=== PATIENT | female | born 1930 | race African-American/Black ===

== ENCOUNTER 2017-05-18 23:22 | Inpatient (IN) | payer MEDICARE, OTHER ==
[~2017-05-18] VITALS: Ht 165.1 cm; Wt 84.4 kg
[2017-05-19 01:33] LABS: Basophils # (auto) 0.1 uL; Basophils % (auto) 0.7 % (0.0-2.0); Eosinophils # (auto) 0.3 uL; Eosinophils % (auto) 4.2 % (0.0-7.0); Hematocrit 33.7 % (36.0-46.0); Hemoglobin 11.1 g/dL (12.2-16.2); Lymphocytes # (auto) 2.6 uL; Lymphocytes % (auto) 33.3 % (10.0-50.0); Mean Corpuscular Volume 97.1 fL (80.0-100.0); Mean Platelet Volume 8.2 fL (6.9-10.8); Monocytes # (auto) 0.5 uL; Neutrophils # (auto) 4.2 uL; Neutrophils % (auto) 54.8 % (37.0-80.0); Nucleated Red Blood Cells % 0.1 %; Platelet Count (auto) 144 10^3/uL (140-450); Red Cell Distribution Width 16.1 % (11.8-14.3); White Blood Cell 7.7 10^3/uL (4.4-10.8)
[2017-05-19 01:45] LABS: Calcium 8.1 mg/dL (8.5-10.1); Potassium 4.6 mmol/L (3.5-5.1)
[2017-05-19 01:47] LABS: BUN/Creatinine Ratio 16.8
[2017-05-19 01:49] LABS: Bilirubin, Total 0.1 mg/dL (0.2-1.0); Total Protein 6.5 g/dL (6.4-8.2)
[2017-05-19 01:56] LABS: Temperature: 21.9 C (20.0-25.0)
[2017-05-19] MEDS ORDERED: SODIUM CHLORIDE 0.9% 1,000 ML IV ONE (08:21)
[2017-05-19 09:34] LABS: Magnesium 1.8 mg/dL (1.6-2.6); Uric Acid 5.9 mg/dL (2.6-6.0)
[2017-05-19] MEDS ORDERED: NALBUPHINE HCL 10 MG/1ml INJECTION IV ONE (10:00)
[2017-05-19 12:39] LABS: Urine Bilirubin Negative (Negative); Urine Blood Negative /uL (Negative); Urine Color Yellow (Yellow); Urine Glucose Normal (Normal); Urine Ketone Negative (Negative); Urine Nitrite Negative (Negative); Urine RBC <1 /hpf (0 - 4); Urine Squamous Epithelial Cell FEW /hpf (<5); Urine Urobilinogen Normal (Negative); Urine pH 5.5 (5.0-8.0)
[2017-05-19] MEDS ORDERED: LISINOPRIL 5 MG TAB PO ONE (12:45)
[2017-05-19] MEDS ORDERED: HYDROmorphone HCL 2 MG/ML VL IV PRN (12:45)
[2017-05-19] MEDS ORDERED: SPIRONOLACTONE 25 MG TAB PO ONE (12:45)
[2017-05-19] MEDS ORDERED: MORPHINE SULFATE 10 MG/ML INJ 1ML SDV IV PRN (12:45)
[2017-05-19] MEDS ORDERED: NITROGLYCERIN 0.4 MG SL TAB SL PRN (12:45)
[2017-05-19] MEDS ORDERED: ALLOPURINOL 100 MG TAB PO ONE (12:45)
[2017-05-19] MEDS ORDERED: FUROSEMIDE 20 MG/2 ML VIAL IV ONE (12:45)
[2017-05-19] MEDS ORDERED: traMADol HCL 50 MG TAB PO PRN (12:45)
[2017-05-19] MEDS ORDERED: ONDANSETRON HCL 4 MG/2 ML VIAL IV PRN (12:45)
[2017-05-19] MEDS ORDERED: DOCUSATE SOD 100 MG CAP PO PRN (12:45)
[2017-05-19] MEDS ORDERED: cloNIDine HCL 0.1 MG TAB PO PRN (12:45)
[2017-05-19] MEDS ORDERED: cefTRIAXone 1GM/50ML D5W 50 ML IV ONE ×2 (12:45→13:45)
[2017-05-19] MEDS: MULTIPLE VITAMIN TAB PO SCH (13:53)
[2017-05-19] MEDS: ENOXAPARIN SOD 30 MG/0.3 ML SYRINGE SC SCH (13:53)
[2017-05-19] MEDS ORDERED: ENALAPRILAT 1.25 MG/ML-1ML VIAL IV PRN (15:45)
[2017-05-19] MEDS ORDERED: hydrALAZINE HCL 20 MG/ML VL IV PRN (15:45)
[2017-05-19] MEDS: SODIUM CHLOR 0.9% PF (SALINE LOCK) 10ML VIAL IV SCH ×2 (16:18→22:27)
[2017-05-19] MEDS: HYDROcodone-ACET 5/325MG TAB PO PRN (16:20)
[2017-05-19] MEDS: CLINDAMYCIN 300MG IV 50 ML IV SCH ×2 (16:29→22:26)
[2017-05-19 17:17] VITALS: BP 183/76
[2017-05-19 17:26] VITALS: BP 183/78
[2017-05-19] MEDS: FUROSEMIDE 20 MG/2 ML VIAL IV SCH (17:42)
[2017-05-19] MEDS: BOOST PLUS 8 ounce PO SCH ×2 (17:43→22:27)
[2017-05-19] MEDS: SPIRONOLACTONE 25 MG TAB PO SCH (17:43)
[2017-05-19 22:04] VITALS: BP 123/68
[2017-05-19] MEDS: ACETAMINOPHEN 325 MG TAB PO PRN (23:00)
[2017-05-20] MEDS: TEMAZEPAM 15 MG CAP PO PRN ×2 (01:47→21:20)
[2017-05-20 05:00] VITALS: BP 155/78
[2017-05-20] MEDS: FUROSEMIDE 20 MG/2 ML VIAL IV SCH ×2 (05:59→18:01)
[2017-05-20] MEDS: CLINDAMYCIN 300MG IV 50 ML IV SCH ×3 (05:59→21:18)
[2017-05-20] MEDS: SPIRONOLACTONE 25 MG TAB PO SCH ×2 (06:00→18:01)
[2017-05-20] MEDS: BOOST PLUS 8 ounce PO SCH ×4 (06:00→22:00)
[2017-05-20] MEDS: SODIUM CHLOR 0.9% PF (SALINE LOCK) 10ML VIAL IV SCH ×3 (06:00→21:18)
[2017-05-20 07:13] LABS: Basophils # (auto) 0 uL; Basophils % (auto) 0.3 % (0.0-2.0); Eosinophils # (auto) 0.2 uL; Eosinophils % (auto) 4.2 % (0.0-7.0); Hematocrit 33.7 % (36.0-46.0); Hemoglobin 11.4 g/dL (12.2-16.2); Lymphocytes # (auto) 1.8 uL; Lymphocytes % (auto) 35.9 % (10.0-50.0); Mean Corpuscular Hemoglobin 32.5 pg (28.0-32.0); Mean Corpuscular Hgb Conc. 33.9 g/dL (32.0-36.0); Mean Corpuscular Volume 95.7 fL (80.0-100.0); Mean Platelet Volume 8.1 fL (6.9-10.8); Monocytes # (auto) 0.4 uL; Monocytes % (auto) 8.4 % (0.0-12.0); Neutrophils # (auto) 2.6 uL; Neutrophils % (auto) 51.2 % (37.0-80.0); Nucleated Red Blood Cells % 0.2 %; Platelet Count (auto) 146 10^3/uL (140-450); Red Cell Distribution Width 15.7 % (11.8-14.3)
[2017-05-20 07:30] LABS: Albumin 2.8 g/dL (3.4-5.0); BUN/Creatinine Ratio 15.8; Bilirubin, Total 0.3 mg/dL (0.2-1.0); Calcium 8.3 mg/dL (8.5-10.1); Potassium 4.1 mmol/L (3.5-5.1); Total Protein 6.3 g/dL (6.4-8.2)
[2017-05-20 09:00] VITALS: BP 159/81
[2017-05-20] MEDS: cefTRIAXone 1GM/50ML D5W 50 ML IV SCH (09:23)
[2017-05-20] MEDS: ENOXAPARIN SOD 30 MG/0.3 ML SYRINGE SC SCH (10:01)
[2017-05-20] MEDS: MULTIPLE VITAMIN TAB PO SCH (10:02)
[2017-05-20] MEDS: LISINOPRIL 5 MG TAB PO SCH (10:02)
[2017-05-20] MEDS: ALLOPURINOL 100 MG TAB PO SCH (10:16)
[2017-05-20] MEDS: HYDROcodone-ACET 5/325MG TAB PO PRN ×2 (10:18→18:02)
[2017-05-20 13:00] VITALS: BP 119/65
[2017-05-20 17:00] VITALS: BP 140/76
[2017-05-20 23:15] VITALS: BP 134/65
[2017-05-21] MEDS: HYDROcodone-ACET 5/325MG TAB PO PRN ×2 (00:42→10:28)
[2017-05-21] MEDS: CLINDAMYCIN 300MG IV 50 ML IV SCH ×2 (05:51→14:00)
[2017-05-21 05:52] VITALS: BP 170/76
[2017-05-21] MEDS: FUROSEMIDE 20 MG/2 ML VIAL IV SCH (05:52)
[2017-05-21] MEDS: SODIUM CHLOR 0.9% PF (SALINE LOCK) 10ML VIAL IV SCH ×2 (05:52→16:20)
[2017-05-21] MEDS: SPIRONOLACTONE 25 MG TAB PO SCH (05:52)
[2017-05-21] MEDS: BOOST PLUS 8 ounce PO SCH ×2 (05:52→12:07)
[2017-05-21 06:13] LABS: Basophils # (auto) 0 uL; Basophils % (auto) 0.4 % (0.0-2.0); Eosinophils # (auto) 0.3 uL; Eosinophils % (auto) 5.2 % (0.0-7.0); Hemoglobin 11.9 g/dL (12.2-16.2); Lymphocytes # (auto) 1.9 uL; Lymphocytes % (auto) 36.8 % (10.0-50.0); Mean Corpuscular Hemoglobin 32.8 pg (28.0-32.0); Mean Corpuscular Hgb Conc. 34.1 g/dL (32.0-36.0); Mean Corpuscular Volume 96.1 fL (80.0-100.0); Mean Platelet Volume 7.9 fL (6.9-10.8); Monocytes # (auto) 0.5 uL; Monocytes % (auto) 9.2 % (0.0-12.0); Neutrophils # (auto) 2.5 uL; Neutrophils % (auto) 48.4 % (37.0-80.0); Nucleated Red Blood Cells % 0.2 %; Platelet Count (auto) 144 10^3/uL (140-450); Red Cell Distribution Width 15.8 % (11.8-14.3); White Blood Cell 5.3 10^3/uL (4.4-10.8)
[2017-05-21 06:41] LABS: BUN/Creatinine Ratio 19.4; Bilirubin, Total 0.3 mg/dL (0.2-1.0); Calcium 8.5 mg/dL (8.5-10.1); Potassium 4.2 mmol/L (3.5-5.1); Total Protein 6.9 g/dL (6.4-8.2)
[2017-05-21 09:00] VITALS: BP 168/77
[2017-05-21] MEDS ORDERED: HEPARIN IN NS 1000Units/500mL 0 ML ONE (09:16)
[2017-05-21] MEDS ORDERED: LIDOCAINE 2%HCL (LOCAL ANESTH.) INJ 20ML MDV ONE (09:16)
[2017-05-21] MEDS ORDERED: IODIXANOL 320MG/ML 100ML BTL IV ONE (09:16)
[2017-05-21 09:23] LABS: INR 0.92 (0.9-1.15)
[2017-05-21] MEDS: ALLOPURINOL 100 MG TAB PO SCH (10:28)
[2017-05-21] MEDS: MULTIPLE VITAMIN TAB PO SCH (10:28)
[2017-05-21] MEDS: LISINOPRIL 5 MG TAB PO SCH (10:29)
[2017-05-21] MEDS: ENOXAPARIN SOD 30 MG/0.3 ML SYRINGE SC SCH (10:29)
[2017-05-21] MEDS: cefTRIAXone 1GM/50ML D5W 50 ML IV SCH (10:29)
[2017-05-21 13:00] VITALS: BP 133/69
[2017-05-21] MEDS ORDERED: CLOPIDOGREL BISULFATE 75 MG TAB PO ONE (14:45)
[2017-05-21] MEDS: ACETAMINOPHEN 325 MG TAB PO PRN (17:01)
[2017-05-21 17:47] VITALS: BP 125/80
[2017-05-22] MEDS ORDERED: CLOPIDOGREL BISULFATE 75 MG TAB PO SCH (10:00)
== END 2017-05-21 17:29 | disposition left against medical advice (07) | DRG 280 ==
LOC: ER 23:30 → TELE 23:31 → TELE-WESTW 05-19 16:43
PROVIDERS: ADMIT Internal Medicine; ATTEND Internal Medicine
DX: I21.4 Non-ST elevation (NSTEMI) myocardial infarction (principal); I50.43 Acute on chronic combined systolic (congestive) and diastolic (congestive) heart failure; E44.0 Moderate protein-calorie malnutrition; D63.8 Anemia in other chronic diseases classified elsewhere; I13.0 Hypertensive heart and chronic kidney disease with heart failure and stage 1 through stage 4 chronic kidney disease, or unspecified chronic kidney disease; N39.0 Urinary tract infection, site not specified; L03.119 Cellulitis of unspecified part of limb; E66.01 Morbid (severe) obesity due to excess calories; I50.9 Heart failure, unspecified; N18.3 Chronic kidney disease, stage 3 (moderate); I25.119 Atherosclerotic heart disease of native coronary artery with unspecified angina pectoris; I25.2 Old myocardial infarction; I73.9 Peripheral vascular disease, unspecified; M10.9 Gout, unspecified; Z82.3 Family history of stroke; Z68.31 Body mass index [BMI] 31.0-31.9, adult; I70.0 Atherosclerosis of aorta
CPT/HCPCS: 36415; 71020; 80053; 81001; 83735; 83880; 84443; 84484; 84550; 85025; 85610; 87040; 87077; 87186; 93005; 93306; 93926; 93970; 96361; 96365; 96375; 97116; 97163; 97530; J0696; J3490; Q9967

== ENCOUNTER 2017-11-04 18:10 | Emergency (ER) | payer MEDICARE, OTHER ==
[~2017-11-04] VITALS: Ht 170.2 cm; Wt 77.1 kg
[2017-11-04 21:48] LABS: Basophils # (auto) 0 uL; Basophils % (auto) 0.6 % (0.0-2.0); Eosinophils # (auto) 0.2 uL; Eosinophils % (auto) 2.8 % (0.0-7.0); Hematocrit 37.9 % (36.0-46.0); Hemoglobin 12.3 g/dL (12.2-16.2); Lymphocytes # (auto) 2.4 uL; Lymphocytes % (auto) 33.1 % (10.0-50.0); Mean Corpuscular Hemoglobin 32.9 pg (28.0-32.0); Mean Corpuscular Hgb Conc. 32.5 g/dL (32.0-36.0); Mean Corpuscular Volume 101.2 fL (80.0-100.0); Monocytes # (auto) 0.4 uL; Monocytes % (auto) 5.4 % (0.0-12.0); Neutrophils # (auto) 4.2 uL; Neutrophils % (auto) 58.1 % (37.0-80.0); Nucleated Red Blood Cells % 0.4 %; Platelet Count (auto) 143 10^3/uL (140-450); Red Blood Cells 3.74 10^6/uL (4.0-5.20); Red Cell Distribution Width 15.7 % (11.8-14.3); White Blood Cell 7.2 10^3/uL (4.4-10.8)
[2017-11-04 22:02] LABS: Albumin 3.2 g/dL (3.4-5.0); BUN/Creatinine Ratio 18.8; Bilirubin, Total 0.2 mg/dL (0.2-1.0); Calcium 7.6 mg/dL (8.5-10.1); Potassium 4.2 mmol/L (3.5-5.1)
[2017-11-04] MEDS ORDERED: GABAPENTIN 400 MG CAP PO ONE (22:15)
[2017-11-04] MEDS ORDERED: traMADol HCL 50 MG TAB PO ONE (22:15)
[2017-11-04] MEDS ORDERED: cloNIDine HCL 0.1 MG TAB PO ONE (23:15)
[2017-11-04] MEDS ORDERED: cloNIDine HCL 0.1 MG TAB ONE (23:21)
[2017-11-05 00:35] VITALS: BP 193/111
== END 2017-11-05 01:40 | disposition home or self-care (01) ==
LOC: ER 18:10
DX: M19.072 Primary osteoarthritis, left ankle and foot (principal); M19.071 Primary osteoarthritis, right ankle and foot; M21.6X2 Other acquired deformities of left foot; M21.6X1 Other acquired deformities of right foot; G62.9 Polyneuropathy, unspecified; M10.9 Gout, unspecified; I10 Essential (primary) hypertension; I25.2 Old myocardial infarction
CPT/HCPCS: 36415; 71045; 73610; 73630; 80053; 83880; 84484; 85025; 93005